=== PATIENT | male | born 1965 | race Two or more races ===

== ENCOUNTER 2020-06-09 07:05 | Day surgery (SDC) | payer OTHER | END 2020-06-09 15:30 | disposition home or self-care (01) | LOC: CIR.AMB 07:05 → ADM 09:30 → CIR.AMB 09:30 | PROVIDERS: ATTEND Orthopaedic Surgery Hand Surgery | DX: S63.591A Other specified sprain of right wrist, initial encounter (principal); Z20.828 Contact with and (suspected) exposure to other viral communicable diseases ==